=== PATIENT | male | born 1980 | race Caucasian/White ===

== ENCOUNTER 2020-03-13 18:42 | Emergency (ER) | payer SELFPAY ==
[~2020-03-13] VITALS: Ht 167.6 cm; Wt 85.3 kg
[2020-03-13 18:50] VITALS: Ht 167.6 cm; Wt 85.3 kg
[2020-03-13 19:51] LABS: BASOPHIL % 0.3 % (0-2); PLATELET COUNT 312 x10^3mcL (130-400); RED CELL DISTRIBUTION WIDTH 14.3 % (11.5-14.5)
[2020-03-13 20:17] LABS: CALCIUM 9.7 mg/dL (8.5-10.1); CARBON DIOXIDE 30.8 mmol/L (21-32); CHLORIDE SERUM 103 mmol/L (98-107); CREATININE SERUM 0.9 mg/dL (0.7-1.3); GFR1 > 60 mL/min; GLUCOSE SERUM 93 mg/dL (74-106); POTASSIUM SERUM 4.3 mmol/L (3.5-5.1); SODIUM SERUM 142 mmol/L (136-145)
[2020-03-13 20:21] LABS: ALBUMIN 4.2 g/dL (3.4-5.0); ALKALINE PHOSPHATASE 79 U/L (46-116); ALT/SGPT 202 U/L (16-63); AST/SGOT 51 U/L (15-37); BILIRUBIN TOTAL 0.22 mg/dL (0.20-1.00); LIPASE 157 IU/L (73-393)
[2020-03-13 20:24] LABS: TOTAL PROTEIN, SERUM 8.4 g/dL (6.4-8.2)
[2020-03-13 20:38] LABS: CHOLESTEROL 237 mg/dL (<200); HDL CHOLESTEROL 48 mg/dL (40-60)
[2020-03-13 21:08] LABS: AMPHETAMINE QUAL UR NONE DETECTED (See below)
[2020-03-13 23:12] VITALS: BP 119/70
== END 2020-03-13 23:12 | disposition home or self-care (01) ==
LOC: ED 18:42
PROVIDERS: Emergency Medicine
DX: R10.13 Epigastric pain (principal); R10.11 Right upper quadrant pain
CPT/HCPCS: 83880; J1885; Q0092